=== PATIENT | female | born 1995 | race Hispanic/Latino ===

== ENCOUNTER 2022-11-03 11:03 | Emergency (ER) | payer OTHER ==
[~2022-11-03] VITALS: Ht 160 cm; Wt 99.8 kg
[2022-11-03] MEDS ORDERED: IBUPROFEN 600 MG TABLET PO ONE (11:30)
[2022-11-03 11:33] VITALS: BP 136/80
[2022-11-03] MEDS ORDERED: IBUPROFEN 600 MG TABLET ONE (11:35)
[2022-11-03] MEDS ORDERED: CYCL5TAB PO (11:35)
[2022-11-03] MEDS ORDERED: IBUP-2070 PO (11:35)
== END 2022-11-03 11:48 | disposition home or self-care (01) ==
LOC: EDH 11:03
DX: S00.03XA Contusion of scalp, initial encounter (principal); S00.83XA Contusion of other part of head, initial encounter; S10.93XA Contusion of unspecified part of neck, initial encounter; V49.49XA Driver injured in collision with other motor vehicles in traffic accident, initial encounter; Y93.I9 Activity, other involving external motion; Y92.488 Other paved roadways as the place of occurrence of the external cause; Y99.8 Other external cause status